=== PATIENT | female | born 1950 | race Caucasian/White ===

== ENCOUNTER 2017-10-20 21:42 | Emergency (ER) | payer MEDICARE, OTHER ==
[2017-10-20 21:45] VITALS: BP 107/46
[2017-10-20] MEDS ORDERED: Acetaminophen 325 MG Tab PO ONE (21:53)
[2017-10-20 22:13] LABS: CHLORIDE,CL 100 mEq/L (98-106); SODIUM,NA 138 mEq/L (136-145)
--- NOTE | 2017-10-20 22:24 | EDM.PDOC ---
ED HPI GENERAL MEDICAL PROBLEM - General Chief Complaint: General Stated Complaint: fever, frequent urination, low back pain Time Seen by Provider: 10/20/17 22:08 Source of Information: Reports: Patient History Limitations: Reports: No Limitations - History of Present Illness INITIAL COMMENTS - FREE TEXT/NARRATIVE: Gladys is a 67 yo who presents to the ER via private vehicle with complaints of UTI symptoms. She states around midnight yesterday she has been up to the bathroom every 15 minutes or so to void. She admits to a fever this morning but didn't take her temperature. She states she did not take any Tylenol or ibuprofen as she was worried about her kidneys, since she has fibromyalgia and was taking it on a frequent basis. Gladys admits to having a headache and some low back pain, rating it around a 7 out of 10. Upon arrival temperature was 101.3 and she was given 650mg of Tylenol. She isn't sure if this has anything to do with her current symptoms but states about a month ago she started retaining fluid in her lower legs and hands. Today with all the urinating it seems to have went down quite a bit over the last week. She denies any shortness of breath presently. Denies any upper respiratory symptoms. States besides the fever and low right back pain she really doesn't have any other complaints. She states today she rested on the couch most of the day as she wasn 't feeling well. Feels as if she has a UTI, which is what it feels like. States she has been told she had kidney stones in the past but thinks they were really small and never had any imaging to confirm. She also admits to a history of piriformis syndrome, which she thought may be causing her low back pain as well. Back Pain Score (Numeric/FACES): 7 - Related Data Allergies Allergy/AdvReac Type Severity Reaction Status Date / Time adhesive tape Allergy Cannot Verified 10/20/17 21:46 Remember bacitracin Allergy Cannot Verified 10/20/17 21:46 Remember ciprofloxacin [From Cipro] Allergy Cannot Verified 10/20/17 21:46 Remember ciprofloxacin HCl Allergy Cannot Verified 10/20/17 21:46 [From Cipro] Remember sulfamethoxazole Allergy Cannot Verified 10/20/17 21:46 [From Bactrim] Remember trimethoprim [From Bactrim] Allergy Cannot Verified 10/20/17 21:46 Remember steroids Allergy Other Uncoded 10/20/17 21:46 Home Meds: Home Meds Acetaminophen [Tylenol Extra Strength] 2 tab PO Q6H PRN 08/16/15 [History] Aspirin 1 tab PO DAILY 08/16/15 [History] Calcium Carbonate/Vitamin D3 [Calcium 600 + Vit D 200] 1 tab PO DAILY 08/16/15 [ History] Cholecalciferol (Vitamin D3) [Vitamin D3] 1 tab PO DAILY 08/16/15 [History] Fish Oil/[place]-3 Fatty Acids [Fish Oil 1,000 MG] 1,000 mg PO DAILY 08/16/15 [ History] Ibuprofen 1 tab PO Q6H PRN 08/16/15 [History] Levothyroxine Sodium [Synthroid] 1 tab PO DAILY 08/16/15 [History] Magnesium Oxide 4 tab PO DAILY 08/16/15 [History] Prasterone (DHEA)/Calcium Carb [DHEA] 1 tab PO DAILY 08/16/15 [History] SUMAtriptan Succinate [Imitrex] 0.5 tab PO ASDIRECTED PRN 08/16/15 [History] Timolol Maleate 1 tab PO DAILY 08/16/15 [History] Ubidecarenone [Co Q10] 1 cap PO DAILY 08/16/15 [History] Vitamin E 1 cap PO DAILY 08/16/15 [History] Estradiol 0.5 mg PO DAILY 08/17/15 [History] Past Medical History Cardiovascular History: Reports: High Cholesterol Endocrine/Metabolic History: Reports: Hypothyroidism Dermatologic History: Reports: Psoriasis Other Dermatologic History: R) foot - Past Surgical History HEENT Surgical History: Reports: Cataract Surgery, Other (See Below) GI Surgical History: Reports: Cholecystectomy Female Surgical History: Reports: Hysterectomy Musculoskeletal Surgical History: Reports: Other (See Below) Other Musculoskeletal Surgeries/Procedures:: distal bicep tendon tear repair Social & Family History - Family History Family Medical History: Noncontributory - Tobacco Use Smoking Status *Q: Never Smoker - Recreational Drug Use Recreational Drug Use: No ED ROS GENERAL - Review of Systems Review Of Systems: ROS reveals no pertinent complaints other than HPI. Constitutional: Reports: Fever, Decreased Appetite HEENT: Reports: No Symptoms Respiratory: Reports: No Symptoms. Denies: Shortness of Breath, Cough Cardiovascular: Reports: No Symptoms. Denies: Chest Pain GI/Abdominal: Denies: Abdominal Pain, Bloody Stool, Constipation, Diarrhea, Nausea, Vomiting : Reports: Flank Pain, Frequency. Denies: Hematuria, Pain Musculoskeletal: Reports: Back Pain, Muscle Pain (chronic fibromyalgia) Skin: Reports: No Symptoms Neurological: Reports: Headache ED EXAM, GENERAL - Physical Exam Exam: See Below Exam Limited By: No Limitations General Appearance: Alert, WD/WN, No Apparent Distress Ears: Normal External Exam, Normal Canal, Normal TMs, Hearing Loss (bilateral hearing aids) Nose: Normal Inspection, Normal Mucosa, No Blood Throat/Mouth: Normal Inspection, Normal Lips, Normal Gums, Normal Oropharynx, Normal Voice, No Airway Compromise Head: Atraumatic, Normocephalic Neck: Normal Inspection, Supple Respiratory/Chest: No Respiratory Distress, Lungs Clear, Normal Breath Sounds, No Accessory Muscle Use Cardiovascular: Regular Rate, Rhythm, No Edema, No Murmur GI/Abdominal: Normal Bowel Sounds, Soft, Non-Tender, No Organomegaly, No Distention, No Mass Back Exam: Normal Inspection. No: CVA Tenderness (L), CVA Tenderness (R) Extremities: Non-Tender, Normal Capillary Refill, Pedal Edema (scant bilateral lower extremity edema) Neurological: Alert, Oriented, Normal Cognition, No Motor/Sensory Deficits Psychiatric: Normal Affect, Normal Mood Skin Exam: Warm, Dry, Intact, Normal Color, No Rash Course - Vital Signs Last Recorded V/S: Last Vital Signs Temp 99.3 F 10/20/17 22:38 Pulse 86 10/20/17 21:43 Resp 18 10/20/17 21:43 BP 107/46 L 10/20/17 21:43 Pulse Ox 95 10/20/17 21:43 - Orders/Labs/Meds Orders: Active Orders 24 hr Category Date Time Status UA W/MICROSCOPIC [URIN] Stat Lab 10/20/17 21:53 Ordered Ketorolac [Toradol] Med 10/20/17 22:40 Once 60 mg IM ONETIME ONE Lidocaine 1% [Xylocaine 1%] Med 10/20/17 22:39 Once 20 ml INJECT ONETIME ONE cefTRIAXone [Rocephin] Med 10/20/17 22:39 Once 1 gm IM ONETIME ONE Labs: Laboratory Tests 10/20/17 10/20/17 10/20/17 Range/Units 21:53 22:00 22:00 WBC 14.6 H (5.0-10.0) 10^3/uL RBC 4.74 (4.00-5.50) 10^6/uL Hgb 14.3 (12.0-16.0) g/dL Hct 43.9 (37.0-47.0) % MCV 92.6 (82.0-94.0) fL MCH 30.2 (27.0-32.0) pg MCHC 32.6 L (33.0-38.0) g/dL RDW Coeff of [place] 13.4 (11.0-15.0) % Plt Count 253 (150-400) 10^3/uL Neut % (Auto) 65.6 (35-85) % Lymph % (Auto) 20.6 (10-55) % [place] % (Auto) 13.3 (0-16) % Eos % (Auto) 0.3 (0-5) % Baso % (Auto) 0.2 (0-3) % Neut # (Auto) 9.59 H (1.80-7.00) 10^3/uL Lymph # (Auto) 3.01 (1.00-4.80) 10^3/uL [place] # (Auto) 1.94 H (0.00-0.80) 10^3/uL Eos # (Auto) 0.05 (0.00-0.45) 10^3/uL Baso # (Auto) 0.03 10^3/uL Sodium 138 (136-145) mEq/L Potassium 4.8 (3.5-5.0) mEq/L Chloride 100 (98-106) mEq/L Carbon Dioxide 29 (21-32) mmol/L BUN 11 (7-18) mg/dL Creatinine 0.9 (0.6-1.0) mg/dL Est Cr Clr Drug Dosing 44.52 mL/min Estimated GFR (MDRD) > 60 (>=60) mL/min Glucose 142 H D (75-99) mg/dL Calcium 9.5 (8.4-10.1) mg/dL C-Reactive Protein 22.8 H (0.2-0.8) mg/dL Urine Color Yellow (YELLOW) Urine Appearance Clear (CLEAR) Urine pH 7.0 (4.5-8.0) Ur Specific [place] 1.015 (1.003-1.020) Urine Protein Trace H (NEGATIVE) mg/dL Urine Glucose (UA) Negative (NEGATIVE) mg/dL Urine Ketones Negative (NEGATIVE) mg/dL Urine Occult Blood Small H (NEGATIVE) Urine Nitrite Negative (NEGATIVE) Urine Bilirubin Negative (NEGATIVE) Urine Urobilinogen 0.2 (0.2-1.0) EU/dL Ur Leukocyte Esterase Negative (NEGATIVE) Urine RBC 0-5 (0-5) /HPF Urine WBC Not seen (0-5) /HPF Ur Epithelial Cells Many H (NOT SEEN) /HPF Urine Bacteria Few H (NOT SEEN) /HPF Meds: Medications Discontinued Medications Generic Name Dose Route Start Last Admin Trade Name Freq PRN Reason Stop Dose Admin Acetaminophen 650 mg 10/20/17 21:53 10/20/17 21:58 Tylenol PO 10/20/17 21:54 650 mg NOW ONE Administration Departure - Departure Time of Disposition: 22:40 Disposition: Home, Self-Care 01 Clinical Impression: Fever, unknown origin, Elevated C-reactive protein (CRP) - Discharge Information Referrals: Eddie Romano MD [Primary Care Provider] - 1 Day Forms: ED Department Discharge Additional Instructions: 1) Rest tonight 2) Encourage sips of water every 15 minutes while awake. 3) May alternate Tylenol with ibuprofen every 4 hours as needed for fever 4) If unable to break fever, symptoms getting worse or any concerns at all, advise returning to ER 5) Will discuss with Dr. Romano in am for appointment - Problem List & Annotations (1) Elevated C-reactive protein (CRP) SNOMED Code(s): 264680672977405 Code(s): R79.82 - ELEVATED C-REACTIVE PROTEIN (CRP) Status: Acute Current Visit: Yes (2) Fever, unknown origin SNOMED Code(s): 2164292 Code(s): R50.9 - FEVER, UNSPECIFIED Status: Acute Current Visit: Yes - My Orders Last 24 Hours: My Active Orders 10/20/17 21:53 UA W/MICROSCOPIC [URIN] Stat 10/20/17 22:39 Lidocaine 1% [Xylocaine 1%] 20 ml INJECT ONETIME ONE cefTRIAXone [Rocephin] 1 gm IM ONETIME ONE 10/20/17 22:40 Ketorolac [Toradol] 60 mg IM ONETIME ONE - Assessment/Plan Last 24 Hours: My Active Orders 10/20/17 21:53 UA W/MICROSCOPIC [URIN] Stat 10/20/17 22:39 Lidocaine 1% [Xylocaine 1%] 20 ml INJECT ONETIME ONE cefTRIAXone [Rocephin] 1 gm IM ONETIME ONE 10/20/17 22:40 Ketorolac [Toradol] 60 mg IM ONETIME ONE Plan: Discussed laboratory findings with Gladys. Unknown cause of mildly elevated WBC and CRP. After long discussion and history of UTI's (which she states typically her urine is initially clean) will treat with 1gm of Rocephin IM. We will also give her 60mg of Toradol for discomfort. Discussed observation status vs going home, which she felt okay going home tonight. I am going to have her follow up with Dr. Romano in the morning as well for repeat laboratory work.
[2017-10-20] MEDS ORDERED: cefTRIAXone 1 GM Vial IM ONE (22:39)
[2017-10-20] MEDS ORDERED: Lidocaine 1% 20 ML MDV INJECT ONE (22:39)
[2017-10-20] MEDS ORDERED: Ketorolac 60 MG/2 ML SDV IM ONE (22:40)
== END 2017-10-20 22:58 | disposition home or self-care (01) ==
LOC: CC.ED 21:42
DX: R50.9 Fever, unspecified (principal); R79.82 Elevated C-reactive protein (CRP); E03.9 Hypothyroidism, unspecified; L40.9 Psoriasis, unspecified; Z88.8 Allergy status to other drugs, medicaments and biological substances; Z88.1 Allergy status to other antibiotic agents; Z88.2 Allergy status to sulfonamides; Z79.82 Long term (current) use of aspirin; Z79.899 Other long term (current) drug therapy
CPT/HCPCS: 36415; 80048; 81001; 85025; 86140; 96372; 99283; A9270; J0696; J1885

== ENCOUNTER 2018-10-24 15:36 | Emergency (ER) | payer MEDICARE, OTHER ==
[2018-10-24 15:40] VITALS: BP 143/46
[2018-10-24] MEDS ORDERED: Lidocaine 1% 20 ML MDV INJECT ONE (15:41)
--- NOTE | 2018-10-24 16:10 | EDM.PDOC ---
ED HPI GENERAL MEDICAL PROBLEM - General Chief Complaint: Laceration Stated Complaint: laceration Time Seen by Provider: 10/24/18 15:41 Source of Information: Reports: Patient History Limitations: Reports: No Limitations - History of Present Illness INITIAL COMMENTS - FREE TEXT/NARRATIVE: Gladys is a 68 year old female who presents to the ED with c/o laceration to her right ring finger. She reports she was weeding quack grass and was not wearing gloves. Reports the grass cut her finger. ROM intact. Does have mild swelling to the area. No other complaints. Onset: Today, Sudden Onset Date: 10/24/18 Onset Time: 15:00 Duration: Constant Location: Reports: Upper Extremity, Right (4th finger) Associated Symptoms: Reports: No Other Symptoms - Related Data Allergies Allergy/AdvReac Type Severity Reaction Status Date / Time adhesive tape Allergy Cannot Verified 10/24/18 15:51 Remember bacitracin Allergy Cannot Verified 10/24/18 15:51 Remember ciprofloxacin [From Cipro] Allergy Cannot Verified 10/24/18 15:51 Remember ciprofloxacin HCl Allergy Cannot Verified 10/24/18 15:51 [From Cipro] Remember sulfamethoxazole Allergy Cannot Verified 10/24/18 15:51 [From Bactrim] Remember trimethoprim [From Bactrim] Allergy Cannot Verified 10/24/18 15:51 Remember steroids Allergy Other Uncoded 10/24/18 15:51 Home Meds: Home Meds Acetaminophen [Tylenol Extra Strength] 2 tab PO Q6H PRN 08/16/15 [History] Aspirin 1 tab PO DAILY 08/16/15 [History] Calcium Carbonate/Vitamin D3 [Calcium 600 + Vit D 200] 1 tab PO DAILY 08/16/15 [ History] Cholecalciferol (Vitamin D3) [Vitamin D3] 1 tab PO DAILY 08/16/15 [History] Fish Oil/[place]-3 Fatty Acids [Fish Oil 1,000 MG] 1,000 mg PO DAILY 08/16/15 [ History] Ibuprofen 1 tab PO Q6H PRN 08/16/15 [History] Levothyroxine Sodium [Synthroid] 1 tab PO DAILY 08/16/15 [History] Magnesium Oxide 4 tab PO DAILY 08/16/15 [History] Prasterone (DHEA)/Calcium Carb [DHEA] 1 tab PO DAILY 08/16/15 [History] SUMAtriptan Succinate [Imitrex] 0.5 tab PO ASDIRECTED PRN 08/16/15 [History] Timolol Maleate 1 tab PO DAILY 08/16/15 [History] Ubidecarenone [Co Q10] 1 cap PO DAILY 08/16/15 [History] Vitamin E 1 cap PO DAILY 08/16/15 [History] Estradiol 0.5 mg PO DAILY 08/17/15 [History] Levothyroxine [Synthroid] 25 mcg PO DAILY 10/24/18 [History] Metoprolol Tartrate 75 mg PO BID 10/24/18 [History] Potassium Chloride 10 meq PO DAILY 10/24/18 [History] Past Medical History Cardiovascular History: Reports: High Cholesterol, Other (See Below) Other Cardiovascular History: mitral valva prolapse Endocrine/Metabolic History: Reports: Hypothyroidism Dermatologic History: Reports: Psoriasis Other Dermatologic History: R) foot - Past Surgical History HEENT Surgical History: Reports: Cataract Surgery, Other (See Below) Other HEENT Surgeries/Procedures: macular hole repair 2011 GI Surgical History: Reports: Cholecystectomy Female Surgical History: Reports: Hysterectomy Musculoskeletal Surgical History: Reports: Other (See Below) Other Musculoskeletal Surgeries/Procedures:: distal bicep tendon tear repair Social & Family History - Family History Family Medical History: Noncontributory - Tobacco Use Smoking Status *Q: Never Smoker - Caffeine Use Caffeine Use: Reports: None - Recreational Drug Use Recreational Drug Use: No ED ROS GENERAL - Review of Systems Review Of Systems: ROS reveals no pertinent complaints other than HPI. ED EXAM, SKIN/RASH Exam: See Below Exam Limited By: No Limitations General Appearance: Alert, WD/WN, No Apparent Distress Peripheral Pulses: 2+: Radial (R) Extremities: Normal Range of Motion, Normal Capillary Refill Skin: Wound/Incision (1 cm laceration to mid right 4th finger, bleeding controlled, mild swelling) Location, Skin: Upper Extremity, Right (4th finger) ED SKIN PROCEDURES - Laceration/Wound Repair Right Digit - 4th (Ring) Lac/Wound length In cm: 1 Appearance: Subcutaneous Distal NVT: Neuro & Vascular Intact Anesthetic Type: Local Local Anesthesia - Lidocaine (Xylocaine): 1% Plain Local Anesthetic Volume: 2cc Exploration/Debridement/Repair: Wound Explored, No Foreign Material Found Closed with: Sutures Suture Size: other (6-0) # of Sutures: 3 Suture Type: Nylon, Interrupted, Simple Sterile Dressing Applied: Nurse Tetanus Status Addressed: Yes Complications: No Progress/Comments: Patient tolerated well. No complications. Course - Vital Signs Last Recorded V/S: Last Vital Signs Temp 97.9 F 10/24/18 15:37 Pulse 68 10/24/18 15:37 Resp 20 10/24/18 15:37 BP 143/46 H 10/24/18 15:37 Pulse Ox 95 10/24/18 15:37 - Orders/Labs/Meds Meds: Medications Discontinued Medications Generic Name Dose Route Start Last Admin Trade Name [place] PRN Reason Stop Dose Admin Lidocaine HCl 3 ml 10/24/18 15:41 10/24/18 15:51 Xylocaine 1% INJECT 10/24/18 15:42 3 ml ONETIME ONE Administration Departure - Departure Time of Disposition: 16:05 Disposition: Home, Self-Care 01 Condition: Good Clinical Impression: Laceration of finger of right hand Qualifiers: Encounter type: initial encounter Finger: ring finger Damage to nail status: without damage Foreign body presence: without foreign body Qualified Code(s): S61.214A - Laceration without foreign body of right ring finger without damage to nail, initial encounter - Discharge Information *PRESCRIPTION DRUG MONITORING PROGRAM REVIEWED*: Not Applicable *COPY OF PRESCRIPTION DRUG MONITORING REPORT IN PATIENT ROSE MARIE: Not Applicable Instructions: Stitches, Susannah, or Adhesive Wound Closure, [id number] Referrals: Eddie Romano MD [Primary Care Provider] - Additional Instructions: - Keep area clean and dry - Cover area if working in dirty conditions - May shower etc. but do not submerge in water - Tylenol or ibuprofen as needed for pain - Monitor for s/s of infection (redness, erythema, foul smelling drainage) - Follow up for suture removal in 8 days
== END 2018-10-24 16:13 | disposition home or self-care (01) ==
LOC: CC.ED 15:36
DX: S61.214A Laceration without foreign body of right ring finger without damage to nail, initial encounter (principal); E03.9 Hypothyroidism, unspecified; E78.00 Pure hypercholesterolemia, unspecified; Z79.82 Long term (current) use of aspirin; Z79.899 Other long term (current) drug therapy; Z88.8 Allergy status to other drugs, medicaments and biological substances; Z88.1 Allergy status to other antibiotic agents; Z88.2 Allergy status to sulfonamides; Z91.09 Other allergy status, other than to drugs and biological substances; W26.8XXA Contact with other sharp object(s), not elsewhere classified, initial encounter; Y93.H2 Activity, gardening and landscaping
CPT/HCPCS: 12001; 99282; 99283; J2001

== ENCOUNTER → 2020-01-13 | Day surgery (SDC) | payer MEDICARE, OTHER ==
[~2020-01-13] MED LIST: Ketamine 200 MG/20 ML MDV IV ONE; Lactated Ringers 1,000 ML IV SCH; Propofol 200 MG/20 ML SDV IV ONE; fentaNYL 100 MCG/2 ML SDV IV ONE
[2020-01-13 10:48] VITALS: BP 130/47; PULSE 69
--- NOTE | 2020-01-13 12:14 | OR ---
DATE OF OPERATION: 01/13/2020 PREOPERATIVE DIAGNOSIS: 1. CHRONIC GASTROESOPHAGEAL REFLUX DISEASE. 2. FAMILY HISTORY OF COLON CANCER. POSTOPERATIVE DIAGNOSIS: 1. CHRONIC GASTROESOPHAGEAL REFLUX DISEASE. 2. FAMILY HISTORY OF COLON CANCER. SURGEON: Will De MD PROCEDURE: 1. DIAGNOSTIC EGD WITH BIOPSIES X4, PARVEEN. 2. FULL-LENGTH COLONOSCOPY WITH FORCEPS POLYP REMOVAL X3. ANESTHESIA: MAC. COMPLICATIONS: None. SPECIMEN: 1. Duodenal bulb biopsy x1. 2. Antral biopsy x2. 3. Antral PARVEEN. 4. Distal esophageal biopsy x1. 5. Three sessile polyps in the rectosigmoid junction and rectum, see report. FINDINGS: 1. Full-length EGD. 2. Mild active gastritis/duodenitis. 3. Reflux esophagitis, grade 1. 4. Full-length colonoscopy. 5. [id number] sigmoid diverticulosis. 6. Three small sessile polyps, 3 to 4 mm each. RECOMMENDATIONS: Ongoing medical therapy for patient's reflux. Followup colonoscopy in 5 years due to polyps and family history of colon cancer. INDICATIONS: The patient was sent by Dr. Romano for diagnostic endoscopies for chronic GERD and family history of colon cancer. Upper and lower endoscopy were ordered. DESCRIPTION OF PROCEDURE: The patient was prepped and draped, placed in the left lateral decubitus position. A lubricated Olympus gastroscope was inserted over a bit, advanced to the cricopharyngeus area and easily intubated in the esophagus. Esophageal lining was benign until its most distal portion. The Z- line was crisp around 39 cm, there was no hernia. Spontaneous GERD was seen. There was grade 1 esophagitis and a biopsy was taken. No active or acute ulceration, erosions, or bleeding. No stricturing or Gaviria's changes seen. The scope was then advanced into the stomach, through the pylorus, and into the second portion of the duodenum. The second portion of duodenum appeared benign, and the duodenal bulb had some mild changes of inflammation, a biopsy was taken. No ulcerations seen. The scope was brought back into the stomach and retroflexed. The upper fundus and cardia were benign. Upon straightening, the rest of the fundus was unremarkable. Antrum shows some chronic but active mild gastritis. We did do 2 biopsies and a CLOtest. Air was then suctioned. Scope removed without complication. A lubricated Olympus colonoscope was then inserted and with ease advanced to the cecum. Direct visualization of the ileocecal valve and appendiceal orifice was accomplished. The bowel prep was adequate. Upon withdrawal, the cecum, ascending, and transverse colon were benign. Throughout the descending area, I found no lesions. The patient does have scattered diverticular disease throughout most of the sigmoid and the rectosigmoid junction, mild to moderate in severity. No active inflammation seen. The patient did have 3 small flat sessile polyps each around 3 to 4 mm, 1 in the rectosigmoid junction and 2 in the proximal rectal vault, all were removed with forceps without complication. Retroflexion of scope in the rectum showed no perianal lesions. Air was then suctioned, scope removed without complication. ALEJANDRA/TESSIE /[id number]
== END ==
LOC: CC.SDS 08:39
PROVIDERS: ATTEND Family Medicine
DX: Z12.11 Encounter for screening for malignant neoplasm of colon (principal); K62.1 Rectal polyp; K63.5 Polyp of colon; K21.0 Gastro-esophageal reflux disease with esophagitis; K29.80 Duodenitis without bleeding; K57.30 Diverticulosis of large intestine without perforation or abscess without bleeding; K29.70 Gastritis, unspecified, without bleeding; E03.9 Hypothyroidism, unspecified; E66.9 Obesity, unspecified; I10 Essential (primary) hypertension; G47.33 Obstructive sleep apnea (adult) (pediatric); Z87.891 Personal history of nicotine dependence; Z88.1 Allergy status to other antibiotic agents; Z79.890 Hormone replacement therapy; Z79.899 Other long term (current) drug therapy; Z68.41 Body mass index [BMI] 40.0-44.9, adult; Z80.0 Family history of malignant neoplasm of digestive organs
CPT/HCPCS: 43239; 45380; 87081; J2704; J3010; J7120; 00813